=== PATIENT | female | born 1970 | race African-American/Black ===

== ENCOUNTER 2019-02-14 08:38 | Emergency (ER) | payer MEDICAID, OTHER ==
[~2019-02-14] VITALS: Ht 172.7 cm; Wt 82.0 kg
[2019-02-14 08:47] VITALS: BP 122/72
[2019-02-14] MEDS ORDERED: KETOROLAC 60MG/2ML VIAL IM ONE (10:15)
== END 2019-02-14 10:49 | disposition home or self-care (01) ==
LOC: ER 08:38
DX: M54.2 Cervicalgia (principal); M25.562 Pain in left knee; M25.532 Pain in left wrist; V43.52XA Car driver injured in collision with other type car in traffic accident, initial encounter; Y93.89 Activity, other specified; Y92.488 Other paved roadways as the place of occurrence of the external cause
CPT/HCPCS: 81025; 96372; 99283; J1885; Z7610